=== PATIENT | female | born 1965 | race Caucasian/White ===

== ENCOUNTER 2016-08-12 18:35 | Emergency (ER) | payer SELFPAY ==
[2016-08-12] MEDS ORDERED: ALBUTEROL HFA INH ONE (23:23)
== END 2016-08-12 23:24 | disposition home or self-care (01) ==
LOC: ER 18:35
DX: J20.9 Acute bronchitis, unspecified (principal); F17.210 Nicotine dependence, cigarettes, uncomplicated
CPT/HCPCS: 71010; 87804; 87880